=== PATIENT | female | born 1980 | race Caucasian/White ===

== ENCOUNTER → 2017-03-13 | Outpatient (CLI) | payer OTHER ==
[~2017-03-13] MED LIST: ASPI-515 PO; CEFD300C37 PO; CEPH-367 PO; CYCL-259 PO; FLUO20CA19 PO; HYDR1TAB16 PO; HYDR4TAB PO; LEVO25TA2 PO; MECL-76 PO; OMEP40CA3 PO; OMEP40CA6 PO; OXYC10TA6 PO; SULF1TAB23 PO
[2017-03-13 10:34] LABS: BLOOD UREA NITROGEN 12 mg/dL (7-18)
== END | disposition home or self-care (01) ==
LOC: STAR 09:06
PROVIDERS: ATTEND Neurological Surgery
DX: Z01.818 Encounter for other preprocedural examination (principal); M51.36 Other intervertebral disc degeneration, lumbar region; Z86.79 Personal history of other diseases of the circulatory system
CPT/HCPCS: 36415; 71020; 80048; 81003; 85025; 85610; 85730; 93005

== ENCOUNTER 2017-03-22 22:06 | Emergency (ER) | payer OTHER ==
[~2017-03-22] VITALS: Ht 170.2 cm; Wt 109.1 kg
[~2017-03-22 22:06] MED LIST changes: +ACET-1757 PO; +CHOL500015 PO; +DOXY100T9 PO
[2017-03-22] MEDS ORDERED: SODIUM CHLORIDE 0.9% 1,000ML IVBOLUS ONE (23:00)
[2017-03-22] MEDS ORDERED: ONDANSETRON 2MG/ML, 2ML IVPush ONE (23:00)
[2017-03-22] MEDS ORDERED: ONDANSETRON 2MG/ML, 2ML ONE (23:07)
[2017-03-22] MEDS ORDERED: HYDROmorphone 1 MG/ML, 1ML ONE ×2 (23:07→23:36)
[2017-03-22] MEDS: HYDROmorphone 1 MG/ML, 1ML IVPush PRN ×2 (23:16→23:38)
[2017-03-22 23:34] LABS: ASPARTATE AMINO TRANSFERASE 19 U/L (15-37); BLOOD UREA NITROGEN 9 mg/dL (7-18)
[2017-03-22] MEDS ORDERED: CHOL500014 PO (23:50)
[2017-03-23] MEDS ORDERED: DIPHENHYDRAMINE 50 MG/ML, 1ML IVPush ONE (00:30)
[2017-03-23] MEDS ORDERED: METOCLOPRAMIDE 5 MG/ML, 2ML IVPush ONE (00:30)
[2017-03-23] MEDS ORDERED: METOCLOPRAMIDE 5 MG/ML, 2ML ONE (00:54)
[2017-03-23] MEDS ORDERED: DEXAMETHASONE 4 MG/ML, 5ML ONE (00:54)
[2017-03-23] MEDS ORDERED: DIPHENHYDRAMINE 50 MG/ML, 1ML ONE (00:54)
[2017-03-23] MEDS ORDERED: DEXAMETHASONE 4 MG/ML, 1ML IVPush ONE (01:00)
[2017-03-23] MEDS ORDERED: HYDROmorphone 1 MG/ML, 1ML ONE (02:15)
[2017-03-23 02:19] VITALS: BP 103/63
[2017-03-23] MEDS ORDERED: HYDROmorphone 1 MG/ML, 1ML IV ONE (02:30)
== END 2017-03-23 03:25 | disposition home or self-care (01) ==
LOC: ED 22:42
DX: G43.909 Migraine, unspecified, not intractable, without status migrainosus (principal); C54.1 Malignant neoplasm of endometrium; C64.9 Malignant neoplasm of unspecified kidney, except renal pelvis; E03.9 Hypothyroidism, unspecified; G89.18 Other acute postprocedural pain; F31.9 Bipolar disorder, unspecified; M54.10 Radiculopathy, site unspecified
CPT/HCPCS: 36415; 70450; 71010; 80053; 81001; 83605; 84145; 85025; 87040; 96361; 96374; 96375; 96376; 99285; J1100; J1170; J1200; J2405; J2765; J7030

== ENCOUNTER 2018-08-27 04:59 | Emergency (ER) | payer SELFPAY ==
[~2018-08-27] VITALS: Ht 170.2 cm; Wt 98.3 kg
[~2018-08-27 04:59] MED LIST changes: +CHOL500045 PO
[2018-08-27] MEDS ORDERED: MORPHINE SULFATE 4 MG/ML, 1ML ONE (05:21)
[2018-08-27] MEDS ORDERED: ONDANSETRON 2MG/ML, 2ML ONE (05:22)
[2018-08-27] MEDS ORDERED: MORPHINE SULFATE 4 MG/ML, 1ML IVPush PRN (05:30)
[2018-08-27] MEDS ORDERED: SODIUM CHLORIDE FLUSH 10ML SYR IVF ONE (05:30)
[2018-08-27] MEDS ORDERED: ONDANSETRON 2MG/ML, 2ML IVPush ONE (05:30)
[2018-08-27 05:34] LABS: MICROSCOPIC AUTO
[2018-08-27 05:35] LABS: CULTURE INDICATED? NO
[2018-08-27 05:48] LABS: BASOPHILS % (AUTO) 0 % (0-1); EOSINOPHILS # (AUTO) 0.32 x10^3/uL (0-0.4); EOSINOPHILS % (AUTO) 5 % (1-7); LYMPHOCYTES # (AUTO) 0.32 x10^3/uL (1-3.4); LYMPHOCYTES % (AUTO) 5 % (22-44); MD NO; MEAN CORPUSCULAR HEMOGLOBIN 28.8 pg (27.0-34.8); MEAN CORPUSCULAR VOLUME 84.9 fL (80-100); MEAN PLATELET VOLUME 8.3 fL (7.4-10.4); MONOCYTES # (AUTO) 0.32 x10^3/uL (0.2-0.8); MONOCYTES % (AUTO) 5 % (2-9); NEUTROPHILS # (AUTO) 5.44 x10^3/uL (1.8-6.8); NEUTROPHILS % (AUTO) 85 % (42-75); PLATELET COUNT 301 x10^3/uL (130-400); RED BLOOD COUNT 5.07 x10^6/uL (3.82-5.3); RED CELL DISTRIBUTION WIDTH 13.4 % (9.6-15.2)
[2018-08-27 05:57] LABS: ALBUMIN 3.7 g/dL (3.4-5.0); ANION GAP 8 mmol/L (5-15); CALCIUM 8.4 mg/dL (8.5-10.1); CHLORIDE 107 mmol/L (98-107)
[2018-08-27 06:00] LABS: ALANINE AMINOTRANSFERASE 16 U/L (12-78); ALKALINE PHOSPHATASE 83 U/L (45-117); BILIRUBIN,TOTAL 0.7 mg/dL (0.2-1.0); CREATININE 1.03 mg/dL (0.55-1.02); TOTAL PROTEIN 7.3 g/dL (6.4-8.2)
[2018-08-27] MEDS ORDERED: PROMETHAZINE 25 MG/ML, 1ML IM ONE (07:00)
[2018-08-27] MEDS ORDERED: PROMETHAZINE 25 MG/ML, 1ML ONE (07:02)
[2018-08-27 07:12] VITALS: BP 135/81
== END 2018-08-27 08:03 | disposition home or self-care (01) ==
LOC: ED 06:03
DX: K52.9 Noninfective gastroenteritis and colitis, unspecified (principal); F31.9 Bipolar disorder, unspecified; E03.9 Hypothyroidism, unspecified; G89.29 Other chronic pain; Z90.49 Acquired absence of other specified parts of digestive tract; Z90.710 Acquired absence of both cervix and uterus
CPT/HCPCS: 36415; 74176; 80053; 81001; 85025; 96372; 96374; 96375; 99285; J2405; J2550

== ENCOUNTER 2019-12-22 18:38 | Emergency (ER) | payer SELFPAY ==
[~2019-12-22] VITALS: Ht 170.2 cm; Wt 85.8 kg
[~2019-12-22 18:38] MED LIST changes: -ACET-1757 PO; +ACET-2065 PO; +DOXY-162 PO; -DOXY100T9 PO; +OMEP40CA42 PO; -OMEP40CA6 PO
--- NOTE | 2019-12-22 19:44 | NUR ---
PT TO ROOM 28 PER PEDIS. ASSESSMENT PERFORMED. PT C/O MULTIPLE THINGS. STATES "I STARTED NOT FEELING GOOD ABOUT 3 WEEKS AGO, AND IT HAS BEEN SNOWBALLING SINCE. NOW MY CHEST HURTS, IT HURTS TO BREATH, I HAVE RIGHT FLANK PAIN AND IT IS RADIATING AROUND TO THE FRONT OF MY ABDOMEN. I ONLY HAVE ONE KIDNEY, AND THE LAST TIME IT GOT INFECTED, I WENT SEPTIC AND SPENT 1 WEEK IN THE ICU HERE." PT NEEDED TO URINATE, SAMPLE COLLECTED. AWAITING VISIT FROM .
[2019-12-22] MEDS ORDERED: ONDANSETRON 2MG/ML, 2ML IVPush ONE (20:30)
[2019-12-22] MEDS ORDERED: SODIUM CHLORIDE FLUSH 10ML SYR IVF ONE (20:30)
[2019-12-22] MEDS ORDERED: MORPHINE SULFATE 4 MG/ML, 1ML IVPush PRN (20:30)
--- NOTE | 2019-12-22 20:30 | NUR ---
MD IN TO ASSESS PATIENT. ORDERS RECEIVED. LAB COLLECTED AND URINE SENT.
[2019-12-22] MEDS ORDERED: ONDANSETRON 2MG/ML, 2ML ONE (20:59)
[2019-12-22] MEDS ORDERED: MORPHINE SULFATE 4 MG/ML, 1ML ONE (20:59)
[2019-12-22 21:02] LABS: BASOPHILS # (AUTO) 0.03 x10^3/uL (0-0.1); BASOPHILS % (AUTO) 1 % (0-1); EOSINOPHILS # (AUTO) 0.17 x10^3/uL (0-0.4); EOSINOPHILS % (AUTO) 3 % (1-7); LYMPHOCYTES % (AUTO) 21 % (22-44); MD NO; MEAN CORPUSCULAR HEMOGLOBIN 28.6 pg (27.0-34.8); MEAN CORPUSCULAR HGB CONC 33.1 g/dL (32.4-35.8); MEAN CORPUSCULAR VOLUME 86.4 fL (80-100); MEAN PLATELET VOLUME 8.5 fL (7.4-10.4); MONOCYTES # (AUTO) 0.53 x10^3/uL (0.2-0.8); MONOCYTES % (AUTO) 8 % (2-9); NEUTROPHILS # (AUTO) 4.58 x10^3/uL (1.8-6.8); NEUTROPHILS % (AUTO) 68 % (42-75); PLATELET COUNT 281 x10^3/uL (130-400); RED BLOOD COUNT 4.59 x10^6/uL (3.82-5.3); RED CELL DISTRIBUTION WIDTH 12.9 % (9.6-15.2)
[2019-12-22 21:09] LABS: ALANINE AMINOTRANSFERASE 12 U/L (12-78); ALBUMIN 3.6 g/dL (3.4-5.0); ANION GAP 7 mmol/L (5-15); CALCIUM 8.5 mg/dL (8.5-10.1); CHLORIDE 109 mmol/L (98-107); CREATININE 0.97 mg/dL (0.55-1.02)
[2019-12-22 21:09] LABS: CULTURE INDICATED? YES; MICROSCOPIC INDICATED
[2019-12-22 21:12] LABS: ALKALINE PHOSPHATASE 61 U/L (45-117); BILIRUBIN,TOTAL 0.5 mg/dL (0.2-1.0); TOTAL PROTEIN 6.6 g/dL (6.4-8.2)
--- NOTE | 2019-12-22 21:13 | NUR ---
MIXING MACHINE ATTENDANT AT BEDSIDE. IV MEDICATIONS GIVEN. PT FEELS BETTER INSTANTLY.
--- NOTE | 2019-12-22 21:20 | NUR ---
PT TO CT PER CART.
[2019-12-22] MEDS ORDERED: CEFTRIAXONE PMX 1GM/50ML 50 ML IV ONE (21:30)
--- NOTE | 2019-12-22 22:40 | NUR ---
DISCHARGE INSTRUCTIONS GIVEN TO PATIENT, WITH 2 SCRIPTS. PT VERBALIZES UNDERSTANDING OF ALL INSTRUCTIONS, MEDICATIONS AND FOLLOW UP. PT AMBULATED OUT OF ED PER PEDIS WITH HER FRIEND WHO WILL BE DRIVING HER HOME.
[2019-12-22 22:41] VITALS: BP 116/77
== END 2019-12-22 22:40 | disposition home or self-care (01) ==
LOC: ED 22:20
DX: S29.011A Strain of muscle and tendon of front wall of thorax, initial encounter (principal); N30.00 Acute cystitis without hematuria; M94.0 Chondrocostal junction syndrome [Tietze]; G43.909 Migraine, unspecified, not intractable, without status migrainosus; G89.29 Other chronic pain; Z85.038 Personal history of other malignant neoplasm of large intestine; Z90.49 Acquired absence of other specified parts of digestive tract; Z90.710 Acquired absence of both cervix and uterus; Z90.5 Acquired absence of kidney; X58.XXXA Exposure to other specified factors, initial encounter; Y93.89 Activity, other specified; Y92.89 Other specified places as the place of occurrence of the external cause; Y99.8 Other external cause status
CPT/HCPCS: 36415; 71046; 74176; 80053; 81001; 83690; 85025; 87077; 87086; 87186; 93005; 96365; 96375; 99285; J0696; J2270; J2405

== ENCOUNTER 2020-01-18 21:02 | Emergency (ER) | payer SELFPAY ==
[~2020-01-18] VITALS: Ht 170.2 cm; Wt 83.6 kg
[2020-01-18 21:06] VITALS: BP 165/87
[2020-01-18] MEDS ORDERED: HYDROcodone/APAP 5/325 TABLET PO ONE (21:30)
[2020-01-18] MEDS ORDERED: HYDROcodone/APAP 5/325 TABLET ONE (21:30)
[2020-01-18 21:38] LABS: MICROSCOPIC INDICATED
[2020-01-18 21:47] LABS: BASOPHILS # (AUTO) 0.04 x10^3/uL (0-0.1); BASOPHILS % (AUTO) 1 % (0-1); EOSINOPHILS # (AUTO) 0.14 x10^3/uL (0-0.4); EOSINOPHILS % (AUTO) 2 % (1-7); LYMPHOCYTES # (AUTO) 1.42 x10^3/uL (1-3.4); LYMPHOCYTES % (AUTO) 20 % (22-44); MD NO; MEAN CORPUSCULAR HEMOGLOBIN 28.7 pg (27.0-34.8); MEAN CORPUSCULAR HGB CONC 33.7 g/dL (32.4-35.8); MEAN CORPUSCULAR VOLUME 85.2 fL (80-100); MEAN PLATELET VOLUME 8.5 fL (7.4-10.4); MONOCYTES # (AUTO) 0.59 x10^3/uL (0.2-0.8); MONOCYTES % (AUTO) 8 % (2-9); NEUTROPHILS # (AUTO) 5.02 x10^3/uL (1.8-6.8); NEUTROPHILS % (AUTO) 70 % (42-75); PLATELET COUNT 320 x10^3/uL (130-400); RED BLOOD COUNT 4.85 x10^6/uL (3.82-5.3); RED CELL DISTRIBUTION WIDTH 13.2 % (9.6-15.2)
[2020-01-18 21:49] LABS: CULTURE INDICATED? NO
[2020-01-18 21:54] LABS: ALBUMIN 3.9 g/dL (3.4-5.0); ANION GAP 4 mmol/L (5-15); CALCIUM 9.1 mg/dL (8.5-10.1); CHLORIDE 108 mmol/L (98-107); CREATININE 0.95 mg/dL (0.55-1.02)
[2020-01-18] MEDS ORDERED: LEVOFLOXACIN 750 MG TABLET PO ONE (22:00)
[2020-01-18] MEDS ORDERED: LEVOFLOXACIN 750 MG TABLET ONE (22:07)
== END 2020-01-18 22:10 | disposition home or self-care (01) ==
LOC: ED 21:32
DX: N30.01 Acute cystitis with hematuria (principal); E03.9 Hypothyroidism, unspecified; F17.200 Nicotine dependence, unspecified, uncomplicated; Z90.49 Acquired absence of other specified parts of digestive tract; Z90.710 Acquired absence of both cervix and uterus; Z90.5 Acquired absence of kidney
CPT/HCPCS: 36415; 80048; 81001; 82040; 85025; 99283

== ENCOUNTER 2020-12-26 07:05 | Emergency (ER) | payer OTHER ==
[~2020-12-26] VITALS: Ht 170.2 cm; Wt 73.4 kg
[~2020-12-26 07:05] MED LIST changes: -ASPI-515 PO; +ASPI-963 PO; -CYCL-259 PO; +CYCL10TA2 PO
--- NOTE | 2020-12-26 07:37 | NUR ---
patient arrives with flu like symptoms fever, dry cough, dizzines, weakness since friday. patient has a hx of left kidney removed 1985, hysterectomy secondary cancer, racquel, mitral valve regurg,
[2020-12-26 07:53] LABS: BASOPHILS % (AUTO) 0 % (0-1); EOSINOPHILS % (AUTO) 1 % (1-7); LYMPHOCYTES % (AUTO) 9 % (22-44); MEAN CORPUSCULAR HEMOGLOBIN 28.6 pg (27.0-34.8); MEAN CORPUSCULAR HGB CONC 33.2 g/dL (32.4-35.8); MEAN PLATELET VOLUME 8.3 fL (7.4-10.4); MONOCYTES % (AUTO) 13 % (2-9); NEUTROPHILS % (AUTO) 77 % (42-75); PLATELET COUNT 237 x10^3/uL (130-400); RED BLOOD COUNT 4.27 x10^6/uL (3.82-5.3); RED CELL DISTRIBUTION WIDTH 13.3 % (9.6-15.2)
[2020-12-26 07:54] LABS: MD NO
[2020-12-26 08:05] LABS: ALBUMIN 3.3 g/dL (3.4-5.0); ANION GAP 7 mmol/L (5-15); CALCIUM 8.2 mg/dL (8.5-10.1); CHLORIDE 109 mmol/L (98-107); CREATININE 1.07 mg/dL (0.55-1.02)
[2020-12-26 08:08] LABS: TROPONIN I < 0.015 ng/mL (0.000-0.045)
[2020-12-26] MEDS ORDERED: SODIUM CHLORIDE FLUSH 10ML SYR IVF ONE (08:30)
--- NOTE | 2020-12-26 08:40 | NUR ---
helped patient to bathroom, walks well. collected urine in case. left for ct
[2020-12-26] MEDS ORDERED: OMNIPAQUE 350 MG/ML, 75ML BOTTLE ONE (08:55)
[2020-12-26 09:18] VITALS: BP 117/72
--- NOTE | 2020-12-26 09:36 | NUR ---
discharge reviewed, shows understandign
== END 2020-12-26 09:41 | disposition home or self-care (01) ==
LOC: ED 07:57
DX: B34.9 Viral infection, unspecified (principal); Z20.822 Contact with and (suspected) exposure to COVID-19; M79.10 Myalgia, unspecified site; R07.89 Other chest pain; R09.81 Nasal congestion; R05 Cough; E03.9 Hypothyroidism, unspecified; R06.02 Shortness of breath; R94.31 Abnormal electrocardiogram [ECG] [EKG]; G43.909 Migraine, unspecified, not intractable, without status migrainosus; F17.210 Nicotine dependence, cigarettes, uncomplicated; Z90.49 Acquired absence of other specified parts of digestive tract; Z90.710 Acquired absence of both cervix and uterus; Z85.038 Personal history of other malignant neoplasm of large intestine
CPT/HCPCS: 36415; 71045; 71275; 80048; 82040; 83605; 84484; 85025; 85379; 93005; 99285; Q9967; U0003